=== PATIENT | female | born 1935 | race Caucasian/White ===

== ENCOUNTER 2017-08-15 12:49 | Observation (INO) | payer MEDICARE ==
[~2017-08-15] VITALS: Ht 144.8 cm; Wt 84.3 kg
[~2017-08-15 12:49] MED LIST: ACET500T71 PO; ASCO10004 PO; ASPI-496 PO; BIOT25005 PO; CA C1TAB35 PO; CETI10CA PO; DEXT1TAB12 SL; FLAX100016 PO; GLIM1TAB2 PO; HYDR10TA11 PO; HYDR12.53 PO; INSU100V8 SQ; LEVA1.2524 INH; LEVA15HF4 INH; LEVO150T5 PO; LEVO50CA2 PO; MAG DELAY64 MG PO; MAGN400T26 PO; MULT-464 PO; OMEP40CA6 PO; PIOG30TA23 PO; TRAM50TA2 PO; UBID200C7 PO
[2017-08-15] MEDS ORDERED: SODIUM CHLORIDE FLUSH 10ML SYR IVF ONE (13:00)
[2017-08-15] MEDS ORDERED: ASPIRIN 81 MG TABLET CHEW PO ONE (13:00)
[2017-08-15 13:07] LABS: BASOPHILS # (AUTO) 0.03 x10^3/uL (0-0.1); BASOPHILS % (AUTO) 1 % (0-1); EOSINOPHILS # (AUTO) 0.12 x10^3/uL (0-0.4); EOSINOPHILS % (AUTO) 2 % (1-7); LYMPHOCYTES # (AUTO) 2.66 x10^3/uL (1-3.4); LYMPHOCYTES % (AUTO) 41 % (22-44); MD NO; MEAN CORPUSCULAR HEMOGLOBIN 31.3 pg (27.0-34.8); MEAN CORPUSCULAR HGB CONC 33.5 g/dL (32.4-35.8); MEAN CORPUSCULAR VOLUME 93.5 fL (80-100); MEAN PLATELET VOLUME 7.8 fL (7.4-10.4); MONOCYTES # (AUTO) 0.46 x10^3/uL (0.2-0.8); MONOCYTES % (AUTO) 7 % (2-9); NEUTROPHILS # (AUTO) 3.31 x10^3/uL (1.8-6.8); NEUTROPHILS % (AUTO) 50 % (42-75); PLATELET COUNT 178 x10^3/uL (130-400); RED BLOOD COUNT 4.79 x10^6/uL (3.82-5.3); RED CELL DISTRIBUTION WIDTH 13.1 % (9.6-15.2)
[2017-08-15] MEDS ORDERED: ASPIRIN 81 MG TABLET CHEW ONE (13:07)
[2017-08-15 13:14] LABS: INTERNATIONAL NORMALIZED RATIO 1.01 (0.93-1.1); PROTHROMBIN TIME 10.4 Seconds (9.6-11.5)
[2017-08-15 13:18] LABS: ALANINE AMINOTRANSFERASE 19 U/L (12-78); ALBUMIN 3.4 g/dL (3.4-5.0); ANION GAP 9 mmol/L (5-15); CALCIUM 8.3 mg/dL (8.5-10.1); CHLORIDE 109 mmol/L (98-107)
[2017-08-15 13:22] LABS: ALKALINE PHOSPHATASE 53 U/L (45-117); BILIRUBIN,TOTAL 0.3 mg/dL (0.2-1.0); CREATININE 0.76 mg/dL (0.55-1.02); TOTAL PROTEIN 6.9 g/dL (6.4-8.2); TROPONIN I < 0.015 ng/mL (0.000-0.045)
[2017-08-15] MEDS ORDERED: ACETAMINOPHEN 500 MG TABLET ONE (13:56)
[2017-08-15] MEDS ORDERED: ACETAMINOPHEN 500 MG TABLET PO ONE (14:00)
[2017-08-15 15:17] VITALS: BP 143/80
[2017-08-15] MEDS ORDERED: ONDANSETRON ODT 4 MG PO PRN (15:30)
[2017-08-15] MEDS ORDERED: DEXTROSE 4 GM TAB.CHEW PO PRN (15:30)
[2017-08-15] MEDS ORDERED: ACETAMINOPHEN 325 MG TABLET PO PRN (15:30)
[2017-08-15] MEDS ORDERED: DEXTROSE 50%, 50ML SYRINGE IVPush PRN (15:30)
[2017-08-15] MEDS ORDERED: GLUCAGON 1 MG IM PRN (15:30)
[2017-08-15] MEDS ORDERED: LABETALOL 5MG/ML, 20ML IVPush PRN (15:30)
[2017-08-15] MEDS ORDERED: POLYETHYLENE GLYCOL 17 GM PACKET PO PRN (15:30)
[2017-08-15] MEDS ORDERED: ENALAPRILAT 1.25 MG/ML, 2ML IVPush PRN (15:30)
[2017-08-15] MEDS ORDERED: DOCUSATE 100 MG CAPSULE PO PRN (15:30)
[2017-08-15] MEDS ORDERED: NITROGLYCERIN 0.4 MG BOTTLE (25 TABS) SL PRN (15:30)
[2017-08-15] MEDS ORDERED: morphine SULFATE 10 MG/ML, 1ML IVPush PRN (15:30)
[2017-08-15] MEDS ORDERED: BISACODYL 10 MG SUPP PR PRN (15:30)
[2017-08-15] MEDS: INSULIN LISPRO 100 UNITS/ML, PEN SQ-INSULIN SCH ×2 (16:00→21:00)
[2017-08-15] MEDS ORDERED: VIT1TABL46 PO (16:03)
[2017-08-15] MEDS ORDERED: INSU100V8 SQ (16:03)
[2017-08-15 19:38] VITALS: BP 124/73
[2017-08-15 20:58] LABS: TROPONIN I < 0.015 ng/mL (0.000-0.045)
[2017-08-15] MEDS: SODIUM CHLORIDE FLUSH 10ML SYR IVF SCH (22:33)
[2017-08-16 01:20] VITALS: BP 113/65
[2017-08-16 02:06] LABS: BASOPHILS # (AUTO) 0.03 x10^3/uL (0-0.1); BASOPHILS % (AUTO) 1 % (0-1); EOSINOPHILS # (AUTO) 0.18 x10^3/uL (0-0.4); EOSINOPHILS % (AUTO) 3 % (1-7); LYMPHOCYTES # (AUTO) 2.74 x10^3/uL (1-3.4); LYMPHOCYTES % (AUTO) 40 % (22-44); MD NO; MEAN CORPUSCULAR HEMOGLOBIN 30.9 pg (27.0-34.8); MEAN CORPUSCULAR HGB CONC 33.3 g/dL (32.4-35.8); MEAN CORPUSCULAR VOLUME 92.9 fL (80-100); MEAN PLATELET VOLUME 7.7 fL (7.4-10.4); MONOCYTES # (AUTO) 0.54 x10^3/uL (0.2-0.8); MONOCYTES % (AUTO) 8 % (2-9); NEUTROPHILS # (AUTO) 3.35 x10^3/uL (1.8-6.8); NEUTROPHILS % (AUTO) 49 % (42-75); PLATELET COUNT 160 x10^3/uL (130-400); RED BLOOD COUNT 4.66 x10^6/uL (3.82-5.3); RED CELL DISTRIBUTION WIDTH 13.1 % (9.6-15.2)
[2017-08-16 02:18] LABS: ANION GAP 7 mmol/L (5-15); CALCIUM 8.4 mg/dL (8.5-10.1); CHLORIDE 108 mmol/L (98-107); CHOLESTEROL, TOTAL 263 mg/dL (140-239); CREATININE 0.87 mg/dL (0.55-1.02); TRIGLYCERIDES 178 mg/dL (50-200); VLDL CHOLESTEROL 36 mg/dL (0-25)
[2017-08-16 02:23] LABS: HEMOGLOBIN A1C 7.1 % (4.2-6.3); TROPONIN I < 0.015 ng/mL (0.000-0.045)
[2017-08-16 02:28] LABS: CHOL/HDL RATIO 4.2; HDL CHOL % 24 % (28-40); HDL CHOLESTEROL (DIRECT) 62 mg/dL (40-60); LDL CHOLESTEROL,CALCULATED 165 mg/dL (54-169); LDL/HDL RATIO 2.7 (0.5-3.0)
[2017-08-16] MEDS ORDERED: ASPIRIN 325 MG TABLET EC PO SCH (06:00)
[2017-08-16] MEDS ORDERED: LEVOTHYROXINE 25 MCG TABLET PO SCH (06:00)
[2017-08-16] MEDS: INSULIN LISPRO 100 UNITS/ML, PEN SQ-INSULIN SCH ×3 (07:00→16:00)
[2017-08-16 07:48] VITALS: BP 147/71
[2017-08-16] MEDS ORDERED: REGADENOSON 0.4 MG/5 ML SYRINGE ONE (08:31)
[2017-08-16] MEDS: SODIUM CHLORIDE FLUSH 10ML SYR IVF SCH (09:00)
[2017-08-16 14:30] VITALS: BP 136/84
== END 2017-08-16 18:05 | disposition home or self-care (01) ==
LOC: ED 13:47 → EDIP 13:48 → INTOOBSV 13:48 → ED 13:54 → 5SO 15:06
PROVIDERS: ADMIT Internal Medicine; ATTEND Internal Medicine
DX: R51 Headache (principal); R20.0 Anesthesia of skin; R00.2 Palpitations; E03.9 Hypothyroidism, unspecified; M19.90 Unspecified osteoarthritis, unspecified site; E78.00 Pure hypercholesterolemia, unspecified; E11.65 Type 2 diabetes mellitus with hyperglycemia; E78.5 Hyperlipidemia, unspecified; I49.3 Ventricular premature depolarization; J45.909 Unspecified asthma, uncomplicated; Z85.3 Personal history of malignant neoplasm of breast; Z90.12 Acquired absence of left breast and nipple; Z92.21 Personal history of antineoplastic chemotherapy; Z92.3 Personal history of irradiation
CPT/HCPCS: 36415; 70450; 71045; 78452; 80048; 80053; 80061; 82962; 83036; 83735; 83880; 84100; 84443; 84484; 85025; 85610; 93005; 93017; 99285; A9502; C9898; G0378; J2785; J1815

== ENCOUNTER 2018-03-02 09:20 | Emergency (ER) | payer MEDICARE ==
[~2018-03-02] VITALS: Ht 157.5 cm; Wt 95.0 kg
[~2018-03-02 09:20] MED LIST changes: +HYDR12.517 PO; -HYDR12.53 PO; +VIT1TABL46 PO
[2018-03-02 09:31] VITALS: BP 123/56
--- NOTE | 2018-03-02 09:36 | NUR ---
BIB [facility]. MGLF on treadmill yesterday. C/O right knee and ankle pain. Superficial abrasion from right knee to ankle. Placed on NIBP, pulse ox and security monitor. Will continue to monitor.
[2018-03-02] MEDS ORDERED: BACITRACIN ZINC OINT 500U/GM, 0.9 GM ONE ×2 (10:36→10:45)
--- NOTE | 2018-03-02 11:08 | NUR ---
Patient/Caregiver given discharge instructions and they have confirmed that they understand the instructions. Patient ambulatory with steady gait with walker from home.
== END 2018-03-02 11:09 | disposition home or self-care (01) ==
LOC: ED 11:00
DX: S93.491A Sprain of other ligament of right ankle, initial encounter (principal); E03.9 Hypothyroidism, unspecified; E11.9 Type 2 diabetes mellitus without complications; J45.909 Unspecified asthma, uncomplicated; W17.89XA Other fall from one level to another, initial encounter; Y93.89 Activity, other specified; Y92.009 Unspecified place in unspecified non-institutional (private) residence as the place of occurrence of the external cause; Y99.8 Other external cause status
CPT/HCPCS: 99283

== ENCOUNTER 2018-07-07 11:18 | Inpatient (IN) | payer MEDICARE ==
[~2018-07-07] VITALS: Ht 154.9 cm; Wt 83.5 kg
[~2018-07-07 11:18] MED LIST changes: +HYDR-3059 PO; -HYDR10TA11 PO
--- NOTE | 2018-07-07 11:41 | NUR ---
Pt presents to ED brought in by EMS with c/o shortness of breath beginning today and low blood sugar. Per EMS, arrival on scene FSBG was 46, patient ate a peanut butter sandwich and apple juice, and recheck of FSBG was 75. Pt recieved 20 g right forearm PIV by EMS and NS. Pt able to speak in full sentences withou difficulty of breathing. Pt has unlabored respirations with even chest rise and fall and pt maintains SPO2% above 95% on room air. Pt connected to athletic monitor, NIBP, and continou pulse ox. Both bed reails up for safety measures and call light within reach. NADN. No needs expressed at this time. X-ray at bedside now.
[2018-07-07 11:59] LABS: BASOPHILS # (AUTO) 0.05 x10^3/uL (0-0.1); BASOPHILS % (AUTO) 1 % (0-1); EOSINOPHILS # (AUTO) 0.05 x10^3/uL (0-0.4); EOSINOPHILS % (AUTO) 0 % (1-7); LYMPHOCYTES # (AUTO) 1.58 x10^3/uL (1-3.4); LYMPHOCYTES % (AUTO) 15 % (22-44); MD NO; MEAN CORPUSCULAR HEMOGLOBIN 31.8 pg (27.0-34.8); MEAN CORPUSCULAR HGB CONC 33.9 g/dL (32.4-35.8); MEAN CORPUSCULAR VOLUME 93.6 fL (80-100); MEAN PLATELET VOLUME 7.7 fL (7.4-10.4); MONOCYTES # (AUTO) 0.71 x10^3/uL (0.2-0.8); MONOCYTES % (AUTO) 7 % (2-9); NEUTROPHILS # (AUTO) 8.06 x10^3/uL (1.8-6.8); NEUTROPHILS % (AUTO) 77 % (42-75); PLATELET COUNT 160 x10^3/uL (130-400); RED BLOOD COUNT 4.97 x10^6/uL (3.82-5.3); RED CELL DISTRIBUTION WIDTH 13.2 % (9.6-15.2)
[2018-07-07 12:11] LABS: ALANINE AMINOTRANSFERASE 22 U/L (12-78); ALBUMIN 3.3 g/dL (3.4-5.0); ANION GAP 7 mmol/L (5-15); CALCIUM 8.8 mg/dL (8.5-10.1); CHLORIDE 112 mmol/L (98-107); CREATININE 0.77 mg/dL (0.55-1.02); PROTHROMBIN TIME 10.5 Seconds (9.6-11.5)
[2018-07-07 12:16] LABS: ALKALINE PHOSPHATASE 56 U/L (45-117); BILIRUBIN,TOTAL 0.4 mg/dL (0.2-1.0); TOTAL PROTEIN 6.9 g/dL (6.4-8.2); TROPONIN I < 0.015 ng/mL (0.000-0.045)
--- NOTE | 2018-07-07 12:57 | NUR ---
Pt resting on gurney connected to NIBP, continous pulse ox, and child monitor. Family member at bedside. NADN. Both bedrails up for safety measures. Call light within reach. Pt states, "I still feel short of breath." Pt able to speak in full sentences. Pt is maintaining SPO2% 94-96%. Pt requesting water. ED MD at bedside.
[2018-07-07] MEDS ORDERED: MAGN400T36 PO (13:05)
--- NOTE | 2018-07-07 14:43 | NUR ---
Pt declines hospital glucometer. Pt using personal glucometer and reporting FSBG to ED staff.
--- NOTE | 2018-07-07 14:43 | NUR ---
Pt ate approximately 25% of lunch tray provided.
--- NOTE | 2018-07-07 15:06 | NUR ---
Provided report to JENNY Alanis. All questions answered. Pt ready to transfer to floor from ED.
--- NOTE | 2018-07-07 15:14 | NUR ---
Pt transfered to floor from ED and left with all personal belongings.
[2018-07-07] MEDS ORDERED: ONDANSETRON ODT 4 MG PO PRN (17:00)
[2018-07-07] MEDS ORDERED: ONDANSETRON 2MG/ML, 2ML IVPush PRN (17:00)
[2018-07-07 17:30] LABS: TROPONIN I < 0.015 ng/mL (0.000-0.045)
[2018-07-07 17:35] LABS: THYROID STIMULATING HORMONE 0.698 mIU/L (0.358-3.740)
[2018-07-07 17:41] LABS: HEMOGLOBIN A1C 7.1 % (4.2-6.3)
[2018-07-07] MEDS: ENOXAPARIN 40 MG/0.4 ML SQ SCH (17:47)
[2018-07-07 19:35] VITALS: BP 130/60
[2018-07-07] MEDS: INSULIN LISPRO 100 UNITS/ML, PEN SQ-INSULIN SCH (21:09)
[2018-07-07 22:40] LABS: TROPONIN I < 0.015 ng/mL (0.000-0.045)
[2018-07-08] MEDS ORDERED: ACETAMINOPHEN 325 MG TABLET PO ONE (01:00)
[2018-07-08 01:26] VITALS: BP 148/69
[2018-07-08 05:52] LABS: MICROSCOPIC AUTO
[2018-07-08 05:57] LABS: CULTURE INDICATED? YES
[2018-07-08 06:29] LABS: BASOPHILS # (AUTO) 0.04 x10^3/uL (0-0.1); BASOPHILS % (AUTO) 1 % (0-1); EOSINOPHILS # (AUTO) 0.11 x10^3/uL (0-0.4); EOSINOPHILS % (AUTO) 2 % (1-7); LYMPHOCYTES # (AUTO) 2.69 x10^3/uL (1-3.4); LYMPHOCYTES % (AUTO) 44 % (22-44); MD NO; MEAN CORPUSCULAR HGB CONC 33.4 g/dL (32.4-35.8); MEAN CORPUSCULAR VOLUME 92.6 fL (80-100); MEAN PLATELET VOLUME 7.7 fL (7.4-10.4); MONOCYTES % (AUTO) 8 % (2-9); NEUTROPHILS # (AUTO) 2.74 x10^3/uL (1.8-6.8); NEUTROPHILS % (AUTO) 45 % (42-75); PLATELET COUNT 174 x10^3/uL (130-400); RED BLOOD COUNT 4.95 x10^6/uL (3.82-5.3)
[2018-07-08 06:37] LABS: ANION GAP 8 mmol/L (5-15); CALCIUM 8.9 mg/dL (8.5-10.1); CHLORIDE 109 mmol/L (98-107)
[2018-07-08 06:47] LABS: CREATININE 0.76 mg/dL (0.55-1.02)
[2018-07-08] MEDS: INSULIN LISPRO 100 UNITS/ML, PEN SQ-INSULIN SCH ×4 (07:00→21:12)
[2018-07-08] MEDS ORDERED: POTASSIUM CHLORIDE 20 MEQ TAB.ER.PRT PO SCH (09:00)
[2018-07-08 09:12] VITALS: BP 170/101
[2018-07-08] MEDS: LEVOTHYROXINE 150 MCG TABLET PO SCH (10:25)
[2018-07-08 11:00] VITALS: BP 126/70
[2018-07-08] MEDS ORDERED: FUROSEMIDE 20 MG/2 ML IV ONE (11:30)
[2018-07-08 15:20] VITALS: BP 132/78
[2018-07-08] MEDS: ENOXAPARIN 40 MG/0.4 ML SQ SCH (17:18)
[2018-07-08] MEDS ORDERED: OMNIPAQUE 350 MG/ML, 100ML BOTTLE ONE (17:45)
[2018-07-08 19:20] VITALS: BP 136/84
[2018-07-09 00:25] VITALS: BP 95/59
[2018-07-09 03:43] VITALS: BP 118/61
[2018-07-09] MEDS ORDERED: ACETAMINOPHEN 325 MG TABLET PO ONE (04:00)
[2018-07-09 06:30] LABS: BASOPHILS # (AUTO) 0.03 x10^3/uL (0-0.1); BASOPHILS % (AUTO) 1 % (0-1); EOSINOPHILS % (AUTO) 2 % (1-7); LYMPHOCYTES # (AUTO) 2.55 x10^3/uL (1-3.4); LYMPHOCYTES % (AUTO) 41 % (22-44); MD NO; MEAN CORPUSCULAR HEMOGLOBIN 31.2 pg (27.0-34.8); MEAN CORPUSCULAR HGB CONC 33.5 g/dL (32.4-35.8); MEAN CORPUSCULAR VOLUME 93.2 fL (80-100); MEAN PLATELET VOLUME 8.1 fL (7.4-10.4); MONOCYTES % (AUTO) 11 % (2-9); NEUTROPHILS # (AUTO) 2.88 x10^3/uL (1.8-6.8); NEUTROPHILS % (AUTO) 46 % (42-75); PLATELET COUNT 172 x10^3/uL (130-400); RED BLOOD COUNT 4.91 x10^6/uL (3.82-5.3); RED CELL DISTRIBUTION WIDTH 12.7 % (9.6-15.2)
[2018-07-09 06:42] LABS: ALBUMIN 3.4 g/dL (3.4-5.0); ANION GAP 8 mmol/L (5-15); CALCIUM 8.9 mg/dL (8.5-10.1); CHLORIDE 106 mmol/L (98-107)
[2018-07-09 06:46] LABS: ALANINE AMINOTRANSFERASE 22 U/L (12-78); ALKALINE PHOSPHATASE 52 U/L (45-117); BILIRUBIN,TOTAL 0.8 mg/dL (0.2-1.0); CREATININE 0.85 mg/dL (0.55-1.02); TOTAL PROTEIN 6.8 g/dL (6.4-8.2)
[2018-07-09 07:24] VITALS: BP 143/85
[2018-07-09] MEDS: LEVOTHYROXINE 150 MCG TABLET PO SCH (08:40)
[2018-07-09] MEDS: INSULIN LISPRO 100 UNITS/ML, PEN SQ-INSULIN SCH ×5 (08:40→21:23)
[2018-07-09] MEDS: POTASSIUM CHLORIDE 20 MEQ TAB.ER.PRT PO SCH (08:41)
[2018-07-09] MEDS ORDERED: INSULIN GLARGINE 100 UNITS/ML, PEN SQ-INSULIN SCH (09:00)
[2018-07-09] MEDS ORDERED: ACETAMINOPHEN 325 MG TABLET PO PRN (09:00)
[2018-07-09] MEDS ORDERED: DEXTROSE 50%, 50ML SYRINGE IVPush PRN (12:30)
[2018-07-09] MEDS ORDERED: DEXTROSE 4 GM TAB.CHEW PO PRN (12:30)
[2018-07-09] MEDS ORDERED: GLUCAGON 1 MG IM PRN (12:30)
[2018-07-09 13:27] VITALS: BP 149/70
[2018-07-09] MEDS: ENOXAPARIN 40 MG/0.4 ML SQ SCH (16:15)
[2018-07-09 18:53] VITALS: BP 147/78
[2018-07-09] MEDS: SODIUM CHLORIDE FLUSH 10ML SYR IVF SCH (21:23)
[2018-07-10 00:51] VITALS: BP 113/67
[2018-07-10 05:42] LABS: ALBUMIN 3.4 g/dL (3.4-5.0); ANION GAP 8 mmol/L (5-15); CALCIUM 8.7 mg/dL (8.5-10.1); CHLORIDE 107 mmol/L (98-107)
[2018-07-10 05:43] LABS: CREATININE 0.79 mg/dL (0.55-1.02)
[2018-07-10] MEDS ORDERED: CEFTRIAXONE PMX 1GM/50ML 50 ML IV SCH (07:00)
[2018-07-10 07:23] VITALS: BP 98/62
[2018-07-10] MEDS: POTASSIUM CHLORIDE 20 MEQ TAB.ER.PRT PO SCH (08:41)
[2018-07-10] MEDS: LEVOTHYROXINE 150 MCG TABLET PO SCH (08:42)
[2018-07-10] MEDS: SODIUM CHLORIDE FLUSH 10ML SYR IVF SCH (08:43)
[2018-07-10] MEDS: INSULIN LISPRO 100 UNITS/ML, PEN SQ-INSULIN SCH ×2 (08:43→12:11)
[2018-07-10] MEDS ORDERED: INSULIN GLARGINE 100 UNITS/ML, PEN SQ-INSULIN SCH (09:00)
[2018-07-10 14:33] VITALS: BP 134/81
[2018-07-10] MEDS ORDERED: BACI1TAB3 PO (14:39)
[2018-07-10] MEDS ORDERED: INSU100I11 SQ-INSULIN (14:39)
[2018-07-10] MEDS ORDERED: CEFD300C37 PO (14:39)
[2018-07-10] MEDS ORDERED: INSU100I13 SQ-INSULIN (14:39)
== END 2018-07-10 16:19 | disposition home or self-care (01) | DRG 637 ==
LOC: ED 12:01 → 3NW 15:20 → 4EST 18:18 → DCLOUNGE 07-10 16:04
PROVIDERS: ADMIT Hospitalist; ATTEND Hospitalist
DX: E11.649 Type 2 diabetes mellitus with hypoglycemia without coma (principal); I50.33 Acute on chronic diastolic (congestive) heart failure; N39.0 Urinary tract infection, site not specified; E27.40 Unspecified adrenocortical insufficiency; E86.0 Dehydration; Z96.653 Presence of artificial knee joint, bilateral; N39.3 Stress incontinence (female) (male); E87.6 Hypokalemia; I11.0 Hypertensive heart disease with heart failure; J45.909 Unspecified asthma, uncomplicated; E78.5 Hyperlipidemia, unspecified; E03.9 Hypothyroidism, unspecified; Z79.4 Long term (current) use of insulin; Z83.3 Family history of diabetes mellitus; Z85.3 Personal history of malignant neoplasm of breast; Z87.11 Personal history of peptic ulcer disease; Z90.710 Acquired absence of both cervix and uterus; E11.65 Type 2 diabetes mellitus with hyperglycemia
CPT/HCPCS: 36415; 71045; 71275; 80048; 80053; 81001; 82040; 82962; 83036; 83880; 84443; 84484; 85025; 85610; 85730; 87077; 87086; 87186; 93005; 93306; 96372; 99285; G0378; J0696; J1650; Q9967; J1815; J1940

== ENCOUNTER → 2019-02-12 | Outpatient (CLI) | payer MEDICARE ==
[~2019-02-12] MED LIST changes: +ACET500T64 PO; -ACET500T71 PO; +BACI1TAB3 PO; +CEFD300C37 PO; -GLIM1TAB2 PO; +GLIM1TAB3 PO; +INSU100I11 SQ-INSULIN; +INSU100I13 SQ-INSULIN; +MAGN400T36 PO; +OMEP40CA42 PO; -OMEP40CA6 PO
== END | disposition home or self-care (01) ==
LOC: CFH 14:24
PROVIDERS: ATTEND Nurse Practitioner
DX: J96.11 Chronic respiratory failure with hypoxia (principal)
CPT/HCPCS: 71250

== ENCOUNTER 2019-10-30 12:08 | Emergency (ER) | payer MEDICARE ==
[~2019-10-30] VITALS: Ht 157.5 cm; Wt 90.0 kg
[~2019-10-30 12:08] MED LIST changes: -GLIM1TAB3 PO; +GLIM1TAB7 PO; -HYDR-3059 PO; +HYDR-3590 PO
[2019-10-30 13:08] LABS: BASOPHILS # (AUTO) 0.04 x10^3/uL (0-0.1); BASOPHILS % (AUTO) 1 % (0-1); EOSINOPHILS # (AUTO) 0.08 x10^3/uL (0-0.4); EOSINOPHILS % (AUTO) 1 % (1-7); LYMPHOCYTES # (AUTO) 2.11 x10^3/uL (1-3.4); LYMPHOCYTES % (AUTO) 37 % (22-44); MD NO; MEAN CORPUSCULAR HEMOGLOBIN 30.6 pg (27.0-34.8); MEAN CORPUSCULAR HGB CONC 32.4 g/dL (32.4-35.8); MEAN CORPUSCULAR VOLUME 94.6 fL (80-100); MEAN PLATELET VOLUME 7.7 fL (7.4-10.4); MONOCYTES # (AUTO) 0.45 x10^3/uL (0.2-0.8); MONOCYTES % (AUTO) 8 % (2-9); NEUTROPHILS # (AUTO) 2.98 x10^3/uL (1.8-6.8); NEUTROPHILS % (AUTO) 53 % (42-75); PLATELET COUNT 169 x10^3/uL (130-400); RED BLOOD COUNT 4.77 x10^6/uL (3.82-5.3)
[2019-10-30 13:17] LABS: ALANINE AMINOTRANSFERASE 20 U/L (12-78); ALBUMIN 3.4 g/dL (3.4-5.0); ANION GAP 5 mmol/L (5-15); CALCIUM 8.9 mg/dL (8.5-10.1); CHLORIDE 109 mmol/L (98-107)
[2019-10-30 13:21] LABS: ALKALINE PHOSPHATASE 46 U/L (45-117); BILIRUBIN,TOTAL 0.5 mg/dL (0.2-1.0); TOTAL PROTEIN 6.8 g/dL (6.4-8.2); TROPONIN I < 0.015 ng/mL (0.000-0.045)
[2019-10-30 13:41] VITALS: BP 154/72
--- NOTE | 2019-10-30 14:09 | NUR ---
Patient given discharge instructions and they have confirmed that they understand the instructions. Patient ambulatory with steady gait on 2.5L home o2.
== END 2019-10-30 14:11 | disposition home or self-care (01) ==
LOC: ED 12:26
DX: R00.2 Palpitations (principal); R06.00 Dyspnea, unspecified; R07.89 Other chest pain; I10 Essential (primary) hypertension; E11.9 Type 2 diabetes mellitus without complications; J45.909 Unspecified asthma, uncomplicated; E03.9 Hypothyroidism, unspecified; Z90.10 Acquired absence of unspecified breast and nipple; Z90.710 Acquired absence of both cervix and uterus
CPT/HCPCS: 36415; 71045; 80053; 83880; 84484; 85025; 93005; 99285

== ENCOUNTER 2020-04-05 11:29 | Inpatient (IN) | payer MEDICARE ==
[~2020-04-05] VITALS: Ht 162.6 cm; Wt 101.4 kg
[~2020-04-05 11:29] MED LIST changes: +ASCO100018 PO; -ASCO10004 PO
--- NOTE | 2020-04-05 11:36 | NUR ---
provider at bedside
--- NOTE | 2020-04-05 11:42 | NUR ---
AT BEDSIDE. EKG IN PROGRESS
--- NOTE | 2020-04-05 11:45 | NUR ---
PT BIB EMS FOR LEFT CHEST PAIN. PT STATES "I FEEL LIKE I WAS HIT IN THE CHEST WITH A SHOVEL. I WAS PALE AND SOB." PT STATES SHE "THIS HAS HAPPENED TO ME BEFORE BUT NEVER LIKE THIS". PT RATES CP 12/12 AT TIME OF INITIAL COMPLAINT. STATES 310 NOW. MONITORS CONNECTED. CALL LIGHT W/IN REACH.
[2020-04-05] MEDS ORDERED: ASPIRIN 81 MG TABLET CHEW PO ONE (12:00)
[2020-04-05 12:32] LABS: BASOPHILS % (AUTO) 1 % (0-1); EOSINOPHILS % (AUTO) 2 % (1-7); LYMPHOCYTES % (AUTO) 44 % (22-44); MEAN CORPUSCULAR HEMOGLOBIN 31.4 pg (27.0-34.8); MEAN CORPUSCULAR HGB CONC 33.2 g/dL (32.4-35.8); MEAN PLATELET VOLUME 7.5 fL (7.4-10.4); MONOCYTES % (AUTO) 10 % (2-9); NEUTROPHILS % (AUTO) 43 % (42-75); PLATELET COUNT 165 x10^3/uL (130-400); RED BLOOD COUNT 4.65 x10^6/uL (3.82-5.3); RED CELL DISTRIBUTION WIDTH 12.6 % (9.6-15.2)
[2020-04-05 12:40] LABS: ALBUMIN 3.5 g/dL (3.4-5.0); ANION GAP 4 mmol/L (5-15); CALCIUM 8.8 mg/dL (8.5-10.1); CHLORIDE 107 mmol/L (98-107); CREATININE 0.83 mg/dL (0.55-1.02)
[2020-04-05 12:43] LABS: MD NO
[2020-04-05 12:44] LABS: TROPONIN I < 0.015 ng/mL (0.000-0.045)
--- NOTE | 2020-04-05 14:32 | NUR ---
pt in bed with no signs or symptoms of acute distress noted respirations even and unlabored denies pain or need at this time. call light within reach bed rails up on left, urinal within reach
--- NOTE | 2020-04-05 15:09 | NUR ---
PT SITTING UP ON EDGE OF GURNEY. AWAITING PLAN OF CARE FROM PROVIDER. STATES NO NEEDS AT THIS TIME. CALL LIGHT W/IN REACH. NSS. NAD
[2020-04-05] MEDS ORDERED: MELO15TA24 PO (15:39)
[2020-04-05] MEDS ORDERED: LISI-606 PO (15:39)
--- NOTE | 2020-04-05 15:39 | NUR ---
PLAN OF CARE DISCUSSED. MED REC COMPLETE
[2020-04-05] MEDS ORDERED: ONDANSETRON 2MG/ML, 2ML IVPush PRN (16:30)
[2020-04-05] MEDS ORDERED: morphine SULFATE 10 MG/ML, 1ML IVPush PRN (16:30)
[2020-04-05] MEDS ORDERED: NITROGLYCERIN 0.4 MG BOTTLE (25 TABS) SL PRN (16:30)
[2020-04-05] MEDS ORDERED: ACETAMINOPHEN 325 MG TABLET PO PRN (16:30)
[2020-04-05] MEDS: INSULIN LISPRO 100 UNITS/ML, PEN SQ-INSULIN SCH ×2 (16:30→21:33)
[2020-04-05] MEDS ORDERED: NITROGLYCERIN 0.4 MG/SPRAY SL PRN (16:30)
[2020-04-05] MEDS ORDERED: POLYETHYLENE GLYCOL 17 GM PACKET PO PRN (16:30)
[2020-04-05] MEDS ORDERED: DOCUSATE 100 MG CAPSULE PO PRN (16:30)
[2020-04-05] MEDS ORDERED: BISACODYL 10 MG SUPP PR PRN (16:30)
--- NOTE | 2020-04-05 16:59 | NUR ---
REPORT GIVEN TO ALESSANDRO ALVARADO
[2020-04-05 17:12] LABS: INTERNATIONAL NORMALIZED RATIO 0.98 (0.93-1.1); PROTHROMBIN TIME 10.5 Seconds (9.6-11.5)
[2020-04-05 17:16] LABS: TROPONIN I < 0.015 ng/mL (0.000-0.045)
[2020-04-05 17:56] VITALS: BP 143/83
[2020-04-05] MEDS: HEPARIN 5,000 UNITS/ML, 1ML SQ SCH (20:33)
[2020-04-05 20:41] VITALS: BP 124/74
[2020-04-05 23:35] LABS: TROPONIN I < 0.015 ng/mL (0.000-0.045)
[2020-04-06 02:17] VITALS: BP 132/75
[2020-04-06] MEDS: HEPARIN 5,000 UNITS/ML, 1ML SQ SCH ×2 (02:30→09:56)
[2020-04-06 04:40] LABS: BASOPHILS % (AUTO) 1 % (0-1); EOSINOPHILS % (AUTO) 3 % (1-7); LYMPHOCYTES % (AUTO) 37 % (22-44); MEAN CORPUSCULAR HEMOGLOBIN 31.4 pg (27.0-34.8); MEAN CORPUSCULAR HGB CONC 33.2 g/dL (32.4-35.8); MEAN PLATELET VOLUME 7.8 fL (7.4-10.4); MONOCYTES % (AUTO) 11 % (2-9); NEUTROPHILS % (AUTO) 48 % (42-75); PLATELET COUNT 164 x10^3/uL (130-400); RED BLOOD COUNT 4.51 x10^6/uL (3.82-5.3); RED CELL DISTRIBUTION WIDTH 12.7 % (9.6-15.2)
[2020-04-06 04:47] LABS: MD NO
[2020-04-06 04:49] LABS: CHLORIDE 108 mmol/L (98-107)
[2020-04-06 05:02] LABS: ALANINE AMINOTRANSFERASE 21 U/L (12-78); ALBUMIN 3.3 g/dL (3.4-5.0); ALKALINE PHOSPHATASE 41 U/L (45-117); ANION GAP 6 mmol/L (5-15); BILIRUBIN,TOTAL 0.6 mg/dL (0.2-1.0); CALCIUM 8.8 mg/dL (8.5-10.1); CHOL/HDL RATIO 4.6; CHOLESTEROL, TOTAL 299 mg/dL (140-239); CREATININE 0.81 mg/dL (0.55-1.02); HDL CHOL % 22 % (28-40); HDL CHOLESTEROL (DIRECT) 65 mg/dL (40-60); LDL CHOLESTEROL,CALCULATED 192 mg/dL (54-169); TOTAL PROTEIN 6.5 g/dL (6.4-8.2); TRIGLYCERIDES 210 mg/dL (50-200); VLDL CHOLESTEROL 42 mg/dL (0-25)
[2020-04-06 07:06] VITALS: BP 121/72
[2020-04-06] MEDS ORDERED: REGADENOSON 0.4 MG/5 ML SYRINGE ONE (07:47)
[2020-04-06] MEDS: INSULIN LISPRO 100 UNITS/ML, PEN SQ-INSULIN SCH ×3 (07:56→16:32)
[2020-04-06] MEDS ORDERED: LEVOTHYROXINE 150 MCG TABLET PO SCH (09:00)
[2020-04-06] MEDS ORDERED: MELOXICAM 15 MG TABLET PO SCH (09:00)
[2020-04-06] MEDS ORDERED: INSULIN GLARGINE 100 UNITS/ML, PEN SQ-INSULIN SCH (09:00)
[2020-04-06] MEDS ORDERED: LISINOPRIL 5 MG TABLET PO SCH (09:00)
[2020-04-06 13:20] VITALS: BP 138/73
[2020-04-06] MEDS ORDERED: FENO54TA17 PO (16:19)
== END 2020-04-06 18:12 | disposition home or self-care (01) | DRG 309 ==
LOC: ED 15:15 → EDIP 15:16 → ED 15:43 → 5SO 17:42
PROVIDERS: ADMIT Internal Medicine; ATTEND Internal Medicine
DX: I49.3 Ventricular premature depolarization (principal); J96.11 Chronic respiratory failure with hypoxia; E27.40 Unspecified adrenocortical insufficiency; R07.89 Other chest pain; E03.9 Hypothyroidism, unspecified; E11.9 Type 2 diabetes mellitus without complications; E78.00 Pure hypercholesterolemia, unspecified; E78.1 Pure hyperglyceridemia; E78.5 Hyperlipidemia, unspecified; J43.9 Emphysema, unspecified; I10 Essential (primary) hypertension; Z96.653 Presence of artificial knee joint, bilateral; M19.90 Unspecified osteoarthritis, unspecified site; Z79.4 Long term (current) use of insulin; Z85.3 Personal history of malignant neoplasm of breast; Z90.12 Acquired absence of left breast and nipple; Z92.3 Personal history of irradiation; Z90.722 Acquired absence of ovaries, bilateral; Z88.2 Allergy status to sulfonamides; Z88.1 Allergy status to other antibiotic agents; Z88.8 Allergy status to other drugs, medicaments and biological substances; Z88.6 Allergy status to analgesic agent; Z88.5 Allergy status to narcotic agent; Z79.899 Other long term (current) drug therapy
CPT/HCPCS: 36415; 71045; 78452; 80048; 80053; 80061; 82040; 82533; 82962; 83735; 84100; 84145; 84443; 84484; 85025; 85610; 93005; 93017; 93306; 99285; G0378; J2785; A9502; J1815